=== PATIENT | male | born 1965 | race Caucasian/White ===

== ENCOUNTER 2017-06-12 13:47 | Emergency (ER) | payer MEDICAID, OTHER ==
[2017-06-12 14:01] VITALS: RESP 16
--- NOTE | 2017-06-12 14:08 | EDPHY ---
H & P Stated Complaint: M1 - SI Source: Patient Exam Limitations: No limitations - Personal History Current Tetanus/Diphtheria Vaccine: Unsure Current Tetanus Diphtheria and Acellular Pertussis (TDAP): Unsure - Medical/Surgical History Hx Asthma: No Hx Chronic Respiratory Disease: No Hx Diabetes: No Hx Cardiac Disease: No Hx Renal Disease: No Hx Cirrhosis: No Hx Alcoholism: Yes Hx HIV/AIDS: No Hx Splenectomy or Spleen Trauma: No Other PMH: Bipolar, SI, ETOH Abuse, Depression - Social History Smoking Status: Never smoked Time Seen by Provider: 06/12/17 14:07 HPI/ROS: HPI: This is a 51-year-old male who presents with Chief Complaint: Paranoia and suicidal ideation Location:psych Quality: Paranoia and suicidal ideation Duration: 1 week Signs and Symptoms: No chest pain, shortness of breath, no nausea, no vomiting , no abdominal pain, + suicidal ideation with plan, no homicidal ideation, no hallucinations, + paranoia Timing: Worse today Severity: Moderate to severe Context: Patient was originally in [facility] and discharged to [facility] where he was currently residing. Today the client was pacing, appearing out windows, expressing severe paranoia. Stating, "They know I'm here." " they are coming for me." He then told the RN that he he's " picked up place" to hang himself on the property. The administered Haldol 5 mg at 12:15 p.m. patient reports that he has been planning to hang himself for over 1 week and actually went to the store to buy purchase rope as well as a court of [place] that he was going to drink prior. Patient has a history of bipolar depressive type, suicidal ideations and alcohol abuse. Patient has multiple inpatient psychiatric admissions. Asking for visceral at this time. Reports compliance on multiple psychiatric medications. Modifying Factors: Haldol Comment: ROS: see HPI Constitutional: No fever, no chills, no weight loss Eyes: No blurred vision Respiratory: No shortness of breath, no cough Cardiovascular: No chest pain Gastrointestinal: No nausea, no vomiting, no diarrhea Genitourinary: No dysuria Extremities: No myalgias Neurologic: No weakness, no numbness Skin: No rashes Hematologic: No bruising, no bleeding MEDICAL/SURGICAL/SOCIAL HISTORY: Medical history: Bipolar-depressive type, SI, ETOH Abuse, Depression Surgical history: Hand trauma requiring hardware, left shoulder arthroscopy Social history: Unemployed CONSTITUTIONAL: Adult male who is calm and cooperative, awake and alert, no obvious distress HEENT: Atraumatic and normocephalic, PERRL, EOMI. Tympanic membranes clear. Oropharynx clear, no exudate and moist pink mucosa. Airway patent. No lymphadenopathy. No meningismus. Cardiovascular: Normal S1/S2, regular rate, regular rhythm, without murmur rub or gallop. PULMONARY/CHEST: Symmetrical and nontender. Clear to auscultation bilaterally. Good air movement. No accessory muscle usage. ABDOMEN: Soft, nondistended, nontender, no rebound, no guarding, no peritoneal signs, no masses or organomegaly. No CVAT. EXTREMITIES: 2/2 pulses, strength 5/5, no deformities, no clubbing, no cyanosis or edema. NEUROLOGICAL: no focal neuro deficits. GCS 15. SKIN: Warm and dry, no erythema. no rash. Good capillary refill. PSYCH: Good eye contact, no flight of ideas, organized thought process, poor insight and judgment, no auditory and visual command hallucinations, + suicidal ideation with a plan, no homicidal ideation, paranoid (Roger,Terra) Constitutional: Initial Vital Signs Temperature (C) 36.8 C 06/12/17 13:58 Heart Rate 90 06/12/17 13:58 Respiratory Rate 16 06/12/17 13:58 Blood Pressure 151/105 H 06/12/17 13:58 O2 Sat (%) 96 06/12/17 13:58 O2 Delivery Mode Room Air Allergies/Adverse Reactions: No Known Allergies Allergy (Unverified 06/12/17 14:10) Home Medications: Medication Instructions Recorded Gabapentin 06/12/17 Haldol 5 MG (*) 06/12/17 Latuda 06/12/17 Vistaril 06/12/17 traZODone 06/12/17 Medical Decision Making ED Course/Re-evaluation: Labs and UDS ordered Patient arrived on M1 hold as patient is at risk to harm himself. P.o. hydroxyzine given per patient request 1525: Labs reviewed and medically clear for mental health evaluation 1713: End of shift. Signed out to Dr. Bojorquez pending mental health evaluation and final disposition. Patient has remained calm and cooperative throughout the shift. (Nae Duran) 7:00 p.m.-this patient was seen by mental health and felt appropriate for inpatient disposition to a CSU. (Aileen Bojorquez) 4803: This patient has been accepted at [facility] by Macy Johnston NP. EMTALA filled out. Appropriate Transfer Will be set up. (Andrew Peraza) Differential Diagnosis: Differential diagnosis includes but is not limited to suicidal ideations, depression, medication not optimized. (Nae Duran) - Data Points Laboratory Results: Laboratory Results 06/12/17 14:30 06/12/17 14:30 06/12/17 14:30 Sodium 139 mEq/L mEq/L (134-144) Potassium 4.4 mEq/L mEq/L (3.5-5.2) Chloride 107 mEq/L mEq/L (97-110) Carbon Dioxide 20 mEq/l L mEq/l (22-31) Anion Gap 12 mEq/L mEq/L (8-16) BUN 20 mg/dL mg/dL (7-23) Creatinine 1.1 mg/dL mg/dL (0.7-1.3) Estimated GFR > 60 Glucose 87 mg/dL mg/dL (70-100) Calcium 11.4 mg/dL H mg/dL (8.5-10.4) Phosphorus 3.3 mg/dL mg/dL (2.5-4.5) Salicylates < 1.0 mg/dL L mg/dL (2.0-20.0) Acetaminophen < 10 mcg/mL L mcg/mL (10-30) Ethyl Alcohol < 10 mg/dL mg/dL (0-10) Medications Given: Trazodone HCl (Trazodone) 100 mg PO HS JAMES Stop: 12/09/17 20:59 Last Admin: 06/12/17 23:42 Dose: 100 mg Discontinued Medications Haloperidol (Haldol) 5 mg PO EDNOW ONE Stop: 06/12/17 20:08 Last Admin: 06/12/17 20:40 Dose: 5 mg Hydroxyzine HCl (Hydroxyzine Hcl) 25 mg PO ONCE ONE Stop: 06/12/17 14:29 Last Admin: 06/12/17 14:52 Dose: 25 mg Lurasidone HCl (Latuda) 80 mg PO EDNOW ONE Stop: 06/12/17 20:31 Last Admin: 06/12/17 20:40 Dose: 80 mg Departure - Departure Disposition: Other Psych, Not [facility] Clinical Impression: Bipolar I disorder with depression, Verbalizes suicidal thoughts Condition: Fair Referrals: NONE *PRIMARY CARE P,. [Primary Care Provider] - As per Instructions
[2017-06-12] MEDS ORDERED: hydrOXYzine HCL 25 MG TAB PO ONE (14:28)
[2017-06-12 14:39] LABS: % IMMATURE GRANULYOCYTES 0.4 % (0.0-1.1); ABSOLUTE IMMATURE GRANULOCYTES 0.04 10^3/uL (0.00-0.10); ADD DIFF? NO; ADD MORPH? NO; ADD SCAN? NO; ATYPICAL LYMPHOCYTE FLAG 10 (0-99); FRAGMENT RBC FLAG 0 (0-99); LEFT SHIFT FLG 0 (0-99); LIPEMIA HEMOLYSIS FLAG 90 (0-99); MEAN CELL HEMOGLOBIN 32.7 pg (27.9-34.1); MEAN CELL HEMOGLOBIN CONCENTR. 35.4 g/dL (32.4-36.7); MEAN CELL VOLUME 92.3 fL (81.5-99.8); MEAN PLATELET VOLUME 10.2 fL (8.7-11.7); PLATELET CLUMPS FLAG 0 (0-99); PLATELET COUNT 215 10^3/uL (150-400); RED CELL DISTRIBUTION WIDTH 12.2 % (11.5-15.2)
[2017-06-12 15:09] LABS: ANION GAP 12 mEq/L (8-16); CALCIUM 11.4 mg/dL (8.5-10.4); CARBON DIOXIDE 20 mEq/l (22-31); CHLORIDE 107 mEq/L (97-110); CREATININE 1.1 mg/dL (0.7-1.3); ETHANOL SERUM < 10 mg/dL (0-10); GLOMERULAR FILTRATION RATE > 60; GLUCOSE 87 mg/dL (70-100); POTASSIUM 4.4 mEq/L (3.5-5.2); SALICYLATE < 1.0 mg/dL (2.0-20.0); SODIUM 139 mEq/L (134-144)
[2017-06-12] MEDS ORDERED: LURASIDONE HCL 20 MG TAB PO ONE (20:07)
[2017-06-12] MEDS ORDERED: HALOPERIDOL 5 MG TAB PO ONE (20:07)
[2017-06-12] MEDS ORDERED: LURASIDONE HCL 80 MG TAB PO ONE (20:30)
[2017-06-12] MEDS ORDERED: traZODone 100 MG TAB PO SCH (21:00)
[2017-06-13 03:33] VITALS: BP 101/58; PULSE 56; TEMP 97.7; O2SAT 98
== END 2017-06-13 04:00 ==
LOC: EDUNIT#
DX: F31.9 Bipolar disorder, unspecified (principal)
CPT/HCPCS: 80305; G0480